=== PATIENT | female | born 1970 | race Caucasian/White ===

== ENCOUNTER 2021-01-12 11:01 | Outpatient (CLI) | payer BC, SELFPAY ==
[2021-01-12 17:35] LABS: Basophils Absolute Auto 0.1 K/mm3 (0.0-0.1); Basophils Percent Auto 0.9 % (0.2-1.2); Eosinophils Percent Auto 0.4 % (0-4.4); Hematocrit 42.4 % (37.0-47.0); Hemoglobin 13.6 g/dL (12.0-15.0); Immature Granulocyte Absolute 0.03 K/mm3 (0.00-0.031); Immature Granulocyte Percent A 0.4 % (0-0.5); Lymphocytes Absolute Auto 1.18 K/mm3 (0.9-3.2); Lymphocytes Percent Auto 14.5 % (18.3-44.2); Mean Corpuscular HGB Conc 32.1 g/dl (32-36); Mean Corpuscular Hemoglobin 29.6 pg (26-34); Mean Corpuscular Volume 92.4 fl (80-100); Mean Platelet Volume 10.5 fl (7.4-10.4); Monocytes Absolute Auto 0.5 K/mm3 (0.1-0.6); Monocytes Percent Auto 6.3 % (2.6-8.5); Neutrophils Absolute Auto 6.3 K/mm3 (1.3-6.7); Neutrophils Percent Auto 77.5 % (45.5-73.1); Platelet Count Result 311 k/mm3 (150-375); Red Blood Count 4.59 M/mm3 (4.2-5.4); Red Cell Distribution Width 12.6 % (11.5-14.5); White Blood Count 8.2 K/mm3 (4.5-10.0)
[2021-01-12 17:40] LABS: Alanine Aminotransferase 19 U/L (4-35); Albumin Level 4.3 g/dL (3.5-5.1); Alkaline Phosphatase 57 U/L (38-126); Anion Gap 7 mmol/L (8-16); Aspartate Amino Transferase 29 U/L (14-36); Bilirubin,Total 0.7 mg/dL (0.2-1.3); Blood Urea Nitrogen 17 mg/dL (7-17); Calcium 9.6 mg/dL (8.4-10.2); Carbon Dioxide 27 mmol/L (22-30); Chloride 106 mmol/L (98-107); Estimated Glomerular Filt Rate > 60; Glucose 117 mg/dL (65-105); Potassium 4.1 mmol/L (3.4-5.0); Sodium 140 mmol/L (137-145)
[2021-01-12 17:41] LABS: Add Urine Microscopic? YES; Appearance Urine Cloudy (Clear); Bacteria Urine Trace /hpf; Bilirubin Urine 1+ (Negative); Blood Urine Negative (Negative); Color Urine Amber (Yellow); Glucose Urine UA Negative (Negative); Ketones Urine Trace mg/dL (Negative); Leukocyte Esterase Ur Negative LEU/UL (Negative); Mucus Urine Heavy /lpf; Nitrate Urine Negative (Negative); Protein Urine 2+ mg/dL (Negative); Specific Grav Ur 1.035 (1.001-1.035); Squamous Epithelial Cell Urine Many /hpf (Few); WBC Urine 0-3 /hpf
[2021-01-12 18:48] LABS: Folic Acid > 20.0 ng/mL (2.76->20)
[2021-01-12 19:20] LABS: Vitamin D 25 Hydroxy 74.8 ng/mL
== END 2021-01-12 11:02 | disposition home or self-care (01) ==
PROVIDERS: PCP Family Medicine; Visit Provider Family Medicine
DX: J45.909 Unspecified asthma, uncomplicated (principal); D64.9 Anemia, unspecified; Z82.62 Family history of osteoporosis; Z80.0 Family history of malignant neoplasm of digestive organs; Z79.899 Other long term (current) drug therapy
CPT/HCPCS: 36415; 80053; 81001; 82306; 82607; 82746; 84443; 85025

== ENCOUNTER 2021-05-17 17:28 | Emergency (ER) | payer BC, SELFPAY ==
[2021-05-17 17:39] VITALS: BP 159/91; PULSE 55; RESP 20; TEMP 36.6; O2SAT 99
[2021-05-17 17:46] VITALS: BP 159/91; PULSE 55; RESP 20; TEMP 36.6; O2SAT 99
--- NOTE | 2021-05-17 17:49 | ED.WOUNDLAC ---
HPI - Wound/Laceration General Chief Complaint: Extremity Injury, Upper Stated Complaint: left hand index finger lac Time Seen by Provider: 05/17/21 17:38 Source: patient and RN notes reviewed History of Present Illness HPI narrative: Patient is a 42-year-old female presents the urgent care with complaints of a finger laceration to the left index finger. Patient stated prior to arrival she attempted to open a yogurt packing with a serrated knife. Patient is not up-to-date on her tetanus shot. States that she did wash it out with water and applied pressure. No other acute complaints or injuries. No acute distress noted. Patient aware of the plan of care. Some parts of this dictation were generated by voice recognition software and may contain typographical and/or grammatical inaccuracies. Related Data Home Medications Medication Instructions Recorded Confirmed albuterol sulfate 2 puff INHALATION QID PRN 05/17/21 05/17/21 aspirin [Aspirin Low-Strength] 81 mg PO DAILY 05/17/21 05/17/21 norethindrone-e.estradiol-iron 1 tablet PO DAILY 05/17/21 05/17/21 [Aurovela Fe 1-20 (28)] Allergies Allergy/AdvReac Type Severity Reaction Status Date / Time No Known Allergies Allergy Mild Verified 05/17/21 17:34 Review of Systems Review of Systems: CONSTITUTIONAL: Denies fever, chills, or sweats. EYES: Denies visual changes, redness, or discharge. ENT: Denies rhinorrhea, congestion, sore throat, or otalgia. CARDIOVASCULAR: Denies chest pain, palpitations, or edema. RESPIRATORY: Denies cough or dyspnea. GASTROINTESTINAL: Denies abdominal pain, nausea, vomiting, or diarrhea. GENITOURINARY: Denies dysuria or hematuria. SKIN: Reports of a laceration to the left index finger MUSCULOSKELETAL: Denies back pain, joint pain, or myalgia. NEUROLOGIC: Denies headache, numbness, or weakness. All other systems reviewed are negative, except as documented in HPI. [facility] Past Medical History Medical History (Updated 05/17/21 @ 18:11 by NOE Downs) Allergies Anemia Asthma Cervical cancer Surgical History Surgical History H/O left knee surgery Family History Family History Sibling Hypertension Father Family history of lymphoma, Onset Age: 70 Patient's father is Mother Lung cancer Colon cancer Other Family history of lung cancer Social History Social History Smoking status: Never smoker Alcohol intake: never Comments At the time of my signature, I reviewed and agree with the nursing past medical, surgical, social, and family history. There is no relevant family history pertinent to the patient complaint. Exam Narrative: GENERAL: This is a well-nourished, well-developed patient, in no apparent distress. HEAD: normocephalic, atraumatic. EYES: PERRL. Sclera clear/white. Vision is grossly intact. EARS: External ears normal NOSE: External nose normal with no obvious nasal discharge, nares without redness, no rhinorrhea. THROAT: Mucous membranes moist NECK: Neck supple CARDIOVASCULAR: Regular rate and rhythm without murmurs, gallops, or rubs. RESPIRATORY: Clear to auscultation. Breath sounds equal bilaterally. No wheezes, rales, or rhonchi. SKIN: 1.2 cm linear laceration between the DIP and PIP of the dorsal left index finger. NEURO: awake, alert, and oriented to person, place and time. There were no obvious focal neurologic abnormalities. EXTREMITIES: Range of motion to left hand/fingers within normal limits. Positive strong left radial pulse with capillary refill less than 2 seconds. Course Vital Signs Vital signs: Vital Signs Temperature 98 F 05/17/21 17:39 Pulse Rate 55 L 05/17/21 17:39 Respiratory Rate 20 05/17/21 17:39 Blood Pressure 159/91 H 05/17/21 17:39 Pulse Oximetry 99 05/17/21 17:39 Temper
[2021-05-17] MEDS: TETANUS,DIPHTHERIA,AC PERTUSSIS ADULT (0.5 ML) BOOSTRIX IM (17:59)
== END 2021-05-17 18:25 | disposition home or self-care (01) ==
PROVIDERS: Emergency Provider Nurse Practitioner Family; PCP Family Medicine
DX: S61.211A Laceration without foreign body of left index finger without damage to nail, initial encounter (principal); W26.0XXA Contact with knife, initial encounter; Z23 Encounter for immunization; D64.9 Anemia, unspecified; J45.909 Unspecified asthma, uncomplicated; Z85.41 Personal history of malignant neoplasm of cervix uteri
CPT/HCPCS: 12001; 90471; 90715; 99212; G0463

== ENCOUNTER 2023-12-24 02:56 | Day surgery (SDC) | payer OTHER, SELFPAY ==
[2023-12-11 12:33] VITALS: BMI 20.2
--- NOTE | 2023-12-11 12:40 | PC.NURSE ---
Report to the Outpatient Waiting Room, entrance under the green pavilion located off [facility], at time _1100_ on date _[id number]_. Planned Procedure Time: _1pm_. Time changes happen often and if your time is changed the preop area will call you the afternoon before. - You and your visitor will be asked to self-screen and do not enter if you have any COVID symptoms. - A mask is optional within the hospital at this time. Patients may have clear liquids (water, carbonated beverages, clear teas, apple juice) until 3 hours prior to surgery with a maximum of 20 ounces. - No food from midnight until time of surgery Take the following medications with a SIP of water the morning of surgery: __Symbicort_BC pill DO NOT STOP ANY OF YOUR OTHER PRESCRIPTION MEDICATIONS PRIOR TO SURGERY ?EXCEPT THE FOLLOWING Medications to discontinue per physician ___None Date to take last dose Please no make-up, nail tanzanian, hairspray, perfume, deodorant, or body powder the day of surgery. No jewelry (including any body piercings) or valuables the day of surgery, leave them at home. Please take a shower or bath the night before, or the morning of, surgery with an antibacterial soap. Wear comfortable, loose fitting clothing. - Jewelry must be removed prior to entering the operating room. Rings and piercings that are not removed may be cut off. - The hospital will not accept responsibility for valuables. - Please leave all valuables, including medications, at home the day of surgery. If you are going home after surgery, a licensed local [place] truck driver must drive you home. - NO public transportation without another adult if you receive anesthesia. - We recommend that an adult stay with you for 24 hours following discharge. - We also recommend that you do not drive, make important decision, drink alcoholic beverages, or take any drugs that were not prescribed by your health care provider for at least 24 hours after your discharge time. Follow any additional instructions given to you from your surgeon. If you or anyone in your household have experienced Covid symptoms in the past week, please notify your surgeon or the nurse liaison at the phone number below for possible testing. Telephone instructions given to _Neha__and asked if any additional questions and then verbalized understanding. Patient advised to call surgeon office or pre surgery nurse liaison [phone] if any additional questions.
[2023-12-24 11:30] VITALS: BP 141/99; PULSE 49; RESP 14; TEMP 36.6; O2SAT 100
[2023-12-24] MEDS: LACTATED RINGERS 1,000 ML 30 ML IV CONT (11:30)
[2023-12-24] MEDS: ACETAMINOPHEN 500 MG TABLET 1000 MG PO (11:30)
--- NOTE | 2023-12-24 12:01 | P.HP_ITS ---
H&P: HPI History of Present Illness Date/Time: 12/24/23 12:01 Chief Complaint: cervical polyp Narrative: Patient is a 53 year old female who presents for hysteroscopy and removal of polyp. Patient was seen in the office for well woman exam and found to have a cervical polyp on exam. She denies postcoital or other irregular bleeding. Pelvic US confirmed polyp and demonstrated a vascular stalk originating from n ear the internal os. r/b/a of removal and hysteroscopy discussed with patient who elects to move forward with hysteroscopy and polyp removal. Review of Systems Review of Systems: All systems reviewed & are unremarkable except as noted in HPI and below PMFSH Past Medical History Medical History Allergies Anemia Asthma Cervical cancer Surgical History Surgical History H/O left knee surgery Family History Family History Sibling Hypertension Father Family history of lymphoma, Onset Age: 70 Patient's father is Mother Lung cancer Colon cancer Other Family history of lung cancer Social History Social History Smoking status: Never smoker Alcohol intake: never Living arrangements: with family Spiritual care concerns: No Meds Home Medications and Allergies Home Medications Medication Instructions Recorded Confirmed Type budesonide-formoterol HFA 80 2 puff inhalation Q12H #10.2 grams 01/10/21 12/11/23 Rx mcg-4.5 mcg/actuation aerosol inhaler (Symbicort) albuterol sulfate 90 mcg/actuation 2 puff inhalation QID PRN 05/17/21 12/11/23 History aerosol inhaler Shortness Of Breath Or Wheezing aspirin 81 mg tablet,delayed 81 mg PO DAILY 05/17/21 12/11/23 History release norethindrone 1 mg-ethinyl 1 tablet PO DAILY 05/17/21 12/24/23 History estradiol 20 mcg (21)-iron 75 mg (7) tablet (Aurovela Fe 1-20 (28)) montelukast 10 mg tablet 10 mg PO DAILY #90 tabs 07/11/21 12/11/23 Rx (Singulair) Allergies Allergy/AdvReac Type Severity Reaction Status Date / Time No Known Allergies Allergy Mild Verified 12/24/23 11:45 Vital Signs Vital Signs - 24 hr 12/24/23 11:30 Temperature 97.9 F Pulse Rate 49 L Respiratory Rate 14 Blood Pressure 141/99 H Pulse Oximetry 100 Oxygen Delivery Room Air Exam Const: General: comfortable and no acute distress HENMT: Mouth: Yes moist mucous membranes Resp: Effort & Inspection: normal respiratory effort Cardio: Rate: regular rate Rhythm: regular rhythm Skin: General skin exam: normal color Extrem: General: normal to inspection Psych: Mental Status: mental status grossly normal Assessment and Plan Assessment and plan (1) Cervical polyp: Code(s): N84.1 - Polyp of cervix uteri Status: Acute Assessment and Plan: - r/b/a of removal discussed with patient - patient elects to proceed with hysteroscopy and polypectomy
--- NOTE | 2023-12-24 12:04 | WPDHPUPDATE1 ---
History and Physical Update Update Date/Time: 12/24/23 12:04 History and Physical has been reviewed, including an updated exam of the patient. There are NO changes in the patient's condition. Risks, benefits, and alternatives have been discussed and questions answered. Patient agrees to proceed with procedure.
--- NOTE | 2023-12-24 13:06 | P.PNAN_ITS ---
Anes - Initial Pre Proc Eval Procedure: Operation Date: 12/24/23 13:00 Proposed Procedures p Hysteroscopy with Biopsy of Endometrium and/or Polypectomy - Gael Samuels MD Date/Time: 12/24/23 13:06 Surgeon: Gael Samuels MD Pre Op Diagnosis: Polyp of Cervix Patient Data Age: 53 Gender: F Height: 1.68 m Weight: 58.05 kg Last Vital Signs Temp 97.9 F 12/24/23 11:30 Pulse 49 L 12/24/23 11:30 Resp 14 12/24/23 11:30 BP 141/99 H 12/24/23 11:30 Pulse Ox 100 12/24/23 11:30 O2 Del Method Room Air 12/24/23 11:30 Allergies Allergy/AdvReac Type Severity Reaction Status Date / Time No Known Allergies Allergy Mild Verified 12/24/23 11:45 Home Medications Medication Instructions Recorded Confirmed Type budesonide-formoterol HFA 80 2 puff inhalation Q12H #10.2 grams 01/10/21 12/11/23 Rx mcg-4.5 mcg/actuation aerosol inhaler (Symbicort) albuterol sulfate 90 mcg/actuation 2 puff inhalation QID PRN 05/17/21 12/11/23 History aerosol inhaler Shortness Of Breath Or Wheezing aspirin 81 mg tablet,delayed 81 mg PO DAILY 05/17/21 12/11/23 History release norethindrone 1 mg-ethinyl 1 tablet PO DAILY 05/17/21 12/24/23 History estradiol 20 mcg (21)-iron 75 mg (7) tablet (Aurovela Fe 1-20 (28)) montelukast 10 mg tablet 10 mg PO DAILY #90 tabs 07/11/21 12/11/23 Rx (Singulair) Patient hx anesthesia problems: none Family hx anesthesia problems: none Results Review: All pre-operative results and documents have been reviewed as part of the pre- operative evaluation. [facility] Past Medical History Medical History Allergies Anemia Asthma Cervical cancer Surgical History Surgical History H/O left knee surgery Family History Family History Sibling Hypertension Father Family history of lymphoma, Onset Age: 70 Patient's father is Mother Lung cancer Colon cancer Other Family history of lung cancer Social History Social History Smoking status: Never smoker Alcohol intake: never Living arrangements: with family Spiritual care concerns: No Anes - Eval Final PreProcedure Day of Procedure 12/24/23 13:06 Patient weight: normal Heart: regular rate and rhythm Lungs: clear to auscultation Airway: Mallampati scale class II Neurological: alert and oriented Last oral intake: >/= 8 hours ASA classification: I Emergent: no Anesthetic plan: proceed Anesthesia type and monitoring: general GIVS and standard monitoring Results Review: All pre-operative results and documents have been reviewed as part of the pre- operative evaluation. 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 Informed Consent: The patient's anesthetic plan and its attendant risks and benefits were discussed with the patient/family/POA. Questions were solicited and answers provided to the satisfaction of the patient/family/POA.
--- NOTE | 2023-12-24 13:07 | P.OP_ITS ---
Procedure Note - Detailed Date of Procedure 12/24/23 Pre-op Diagnosis Polyp of Cervix Post-op Diagnosis Same Procedure Performed hysteroscopy, removal of cervical polyp Surgeon Gael Samuels MD Anesthesia MAC Description of Procedure The patient was then taken to the operating room with IVFs running. She was plac ed in the dorsal supine position where she received MAC without any difficulty.?? The patient was placed in the dorsal lithotomy position using daniel stirrups. She was then prepped and draped in a normal sterile fashion. A time-out procedure was performed and all members of the OR team agreed on the patient and plan. A bivalved speculum was then inserted into the patient's vagina.? The anterior lip of the cervix was grasped with a single tooth tenaculum. The cervical os was dilated using bean dilators.? The uterus was sounded to 8 cm.? At this point, the hysteroscope was then inserted into the uterine cavity. Saline was used as the distension medium. The above findings were noted. Both tubal ostia were visualized and pictures were taken.? Using the morcellation device, the cervical polyp was circumferentially removed to its base. Hemostasis was noted. The specimen sent to pathology.? Fluid deficit was 130cc. The hysteroscope and morcellator was removed. The tenaculum was removed; the anterior lip of the cervix was hemostatic.? The speculum was then removed. The patient tolerated the procedure well.? Sponge, lap, needle, and instrument counts were correct X2.? The patient was taken out of the dorsal lithotomy position and awakened from anesthesia and taken to the recovery room in stable condition. Estimated Blood Loss 5 Pathology Yes Complications No immediate complications Condition Stable Disposition Same day
[2023-12-24] MEDS: LIDO 1%/EPINEPHRINE 1:100,000 20 ML VIAL 10 ML INFILTRATE (13:33)
[2023-12-24 13:45] VITALS: BP 106/62; PULSE 62; RESP 14; O2SAT 98
[2023-12-24 14:15] VITALS: BP 107/73; PULSE 56; RESP 16
[2023-12-24 14:45] VITALS: BP 150/95; PULSE 54; RESP 16
[2023-12-24 15:05] VITALS: BP 134/82; PULSE 55; RESP 14
== END 2023-12-24 15:15 | disposition home or self-care (01) ==
PROVIDERS: PCP Family Medicine; Visit Provider Obstetrics & Gynecology
PROC: 0U5B8ZZ Destruction of Endometrium, Via Natural or Artificial Opening Endoscopic (ICD-10-PCS; CPT 58563; principal; 2023-12-24 13:00)
DX: N84.1 Polyp of cervix uteri (principal); Z79.51 Long term (current) use of inhaled steroids; Z79.82 Long term (current) use of aspirin; J45.909 Unspecified asthma, uncomplicated; Z85.41 Personal history of malignant neoplasm of cervix uteri
CPT/HCPCS: 58558; 88305; A9270; J1100; J2250; J2704; J3010; J7120

== ENCOUNTER 2024-12-31 15:27 | Outpatient (CLI) | payer OTHER, SELFPAY ==
--- NOTE | ~2024-12-31 | MM_ITS ---
EXAMINATION: MM screening aviva BI w diony HISTORY: Screening TECHNIQUE: Craniocaudal and mediolateral oblique 3-D tomosynthesis images were obtained and synthetic 2-D images were generated. CAD analysis was submitted and interpreted. COMPARISON: No prior mammogram is available for comparison at this institution. BREAST PARENCHYMAL COMPOSITION: Dense: The breasts are extremely dense, which lowers the sensitivity of mammography. FINDINGS: There is no evidence of suspicious mass, calcification, or architectural distortion to sugg est malignancy in either breast. There has been no suspicious interval change. IMPRESSION: 1. No mammographic evidence of malignancy. 2. Recommend routine screening mammography in one year. BI-RADS Category 1: Negative Reviewed, dictated and finalized at location A.
--- OUTSIDE RECORDS SUMMARY | 2024-12-31 15:31 | XMS_ITS | Referral Summary ---
Author Organization [facility] [place] [address] Address [address] [place] [address] Care Team Providers Care Curing Press Maintainer Name Role Phone Silvana León MD Primary Care Provide r Allergies No known active allergies Medications aspirin 81 mg enteric coated tablet Take 1 tablet (81 mg total) by mouth daily Active multivitamin capsule Take 1 capsule by mouth daily Active calcium citrate-vitamin D2 250 mg-2.5 mcg (100 unit) per tablet Take 1 tablet by mouth 2 (two) times a day Active norethindrone-e .estradioL-iron (Blisovi Fe 08/03, ,) 1 mg-20 mcg (21)/75 mg (7) per tablet Blisovi Fe 08/03 () 1 mg-20 mcg (21)/75 mg (7) tablet Active montelukast (SINGULAIR) 10 mg tablet Take 1 tablet (10 mg total) by mouth daily 90 tablet 1 08/11/2024 Active albuterol HFA (Ventolin HFA) 90 mcg/actuation inhaler Inhale 2 puffs every 6 (six) hours as needed for wheezing 18 g 1 08/11/2024 Active scopolamine 1 mg over 3 days patch [address] 1 patch on the skin every third day as needed (nausea) 4 patch 03/08/2025 Active budesonide-form oteroL (SYMBICORT) 80-4.5 mcg/actuation inhaler Inhale 2 puffs 2 (two) times a day Rinse mouth with water after use. Do not swallow. 1 each 11 08/12/2024 Active Active Problems Problem Noted Date Diagnosed Date BMI 21.0-21.9, adult 08/11/2024 Lipoma of right shoulder 04/16/2024 Assessment & Plan (04/28/2024 7:46 AM CDT): Discussed further excision along with post operative wound care to which she is understanding and agreeable. Lipoma of torso 12/18/2022 Assessment & Plan (01/27/2023 3:04 PM CDT): Likely lipoma of the back, present for 2 years, slow growing. Discussed in office procedure of removal along with risks and benefits. Patient agrees, will plan for separate office procedure. Assessment & Plan (12/18/2022 11:42 AM CDT): Requested referral for removal Referral to general surgery given Encounter for wellness examination 12/05/2021 Assessment & Plan (08/11/2024 1:25 PM SENIOR NET ENGINEER): Order CBC, cmp, lipid, hgb A1c tsh Colonoscopy up to date, due 2027 Pap smear: goes to [facility] Mammo: follows with ob F/u in 1 year for annual Assessment & Plan (12/18/2022 11:28 AM CDT): Ordered CBC, cmp, lipid, hgb a1c Colonoscopy scheduled Pap smear: goes to women [facility] and up to date on screening Mammo: follows with ob Pcv20:declines Zoster given today F/u in 1 year for annual Assessment & Plan (12/05/2021 11:37 AM CDT): Ordered CBC, cmp, lipid, hgb a1c, HIV, hep c, TSH, and free t4 Colonoscopy referral for may Pap smear: goes to women [facility] and up to date on screening Mammo: follows with ob F/u in 1 year for annual Mild intermittent asthma without complication Assessment & Plan (08/10/2024 12:15 PM SENIOR NET ENGINEER): Stable Continue with albuterol prn, singulair daily, and symbicort F/u prn Assessment & Plan (12/17/2022 5:42 AM CDT): Stable Continue with albuterol prn, singulair daily, and symbicort F/u prn Assessment & Plan (12/05/2021 11:37 AM CDT): Stable Continue with albuterol prn, singulair daily, and symbicort F/u prn Immunizations Immunization Administration Dates Next Due DTP 04/08/1990 DTaP 5 Pertussis 05/06/1980, 6,1972,10/29,1972 Hep A, Unspecified 12/20/1992 Hep B, Unspecified 02/08/1994,07/26/1993, 993 Influenza, Quadrivalent, Spl it, Preservative Free, Intramuscular 05/07/2021,05/03/2020,04/30/2019 Influenza, Unspecified 08/11/2024(Deferr ed: Patient Refused),05/03/2023(Deferred: Patient Refused),04/14/2022,07/21/2020, 020 MMR 06/20/1993,01/11/1976 PPD TEST 11/11/2019 Tdap 05/17/2021 ZOSTER Recombinant 04/04/2023,12/18/2022 Social History Tobacco Use Types Packs/Day Years Used Date Smoking Tobacco: Never Smokeless Tobacco: Never Tobacco Cessation:Counseling Given: Not Answered Alcohol Use Standard Drinks/Week Comments No 0 (1 standard drink = 0.6 oz pur e alcohol) AUDIT-C Answer Date Recorded Q1: How often do you have a drink containing alc ohol? Never 04/28/2024 Average Number of Drinks Not on file 024 Frequency of Binge Drinking Not on file 04/14 PHQ-2 Answer Date Recorded PHQ-2 Total Score (If total score is 3 or more points, staff should administer the PHQ-9) 0 08/11/2024 Personal Safety Answer Date Recorded Have you ever been in or are you currently in a harmful physical or emotional relationship or is someone making you feel afraid or unsafe? Denies 04/28/2024 Comments No Sex and Gender Information Value Date Recorded Sex Assigned at Not on file Legal Sex Female 11:48 PM SENIOR NET ENGINEER Gender Identity Not on file Sexual Orientation Not on file Last Filed Vital Signs Vital Sign Reading Time Taken Comments Blood Pressure 116/62 08/11/2024 12:52 PM SENIOR NET ENGINEER Pulse 53 08/11/2024 12:52 PM SENIOR NET ENGINEER Temperature 36.9 C (98.5 F) 08/11/2024 12:52 PM SENIOR NET ENGINEER Respiratory Rate 16 08/11/2024 12:52 PM SENIOR NET ENGINEER Oxygen Saturation 99% 08/11/2024 12:52 PM SENIOR NET ENGINEER Inhaled Oxygen Concentration - - Weight 59.9 kg (132 lb) 08/11/2024 12:52 PM SENIOR NET ENGINEER Height 165.7 cm (5' 5.25) 08/11/2024 12:[address] Body Mass Index 21.8 08/11/2024 12:52 PM SENIOR NET ENGINEER Plan of Treatment Not on file Procedures Procedure Name Priority Date/Time Associated Diagnosis Comments HM PAP SMEAR WITH HPV Routine 10/29/2023 12:39 PM CDT COLONOSCOPY 02/05/2023 8:50 AM CDT HEPATITIS C ANTIBODY Routine 12/12/2021 9:49 AM CDT Encounter for wellness examination from Last 3 Months or Most Recently Relevant to Health Maintenance Results * HM PAP SMEAR WITH HPV (10/29/2023 12:39 PM CDT) Scribed Pap Smear w/HPV Normal us Historical Provider HEALTH MAINTENANCE Final Result * COLONOSCOPY (02/05/2023 8:50 AM CDT) Anatomical Region Laterality Modality Other Narrative Procedure Note Destiny Pichardo MD - 02/05/2023 8:50 AM CDT [facility] Patient Name: Neha Salinas Procedure Date: 02/05/2023 8:50 AM Date of : 1970 Admit Type: Outpatient Age: 52 Gender: Female Attending MD: Destiny Pichardo M.D. Room: [facility] ENDOSCOPY ROOM 1 Note Status: Finalized Patient Profile: This is a 52 year old female. Mother had coloncancer. No specific GI complaints Procedure: Colonoscopy Indications: Screening in patient at increased risk: Familyhistory of 1st-degree relative with colorectal cancer, Last colonoscopy 5 years ago Referring MD: Silvana León M.D. Providers: Destiny Pichardo M.D. Impression: - Small external and internal hemorrhoids - The entire examined colon is normal. - No specimens collected. Recommendation: - Repeat colonoscopy in 5 years for screeningpurposes. Medicines: Monitored Anesthesia Care Complications: No immediate complications. Estimated Blood Loss: Estimated blood loss: none. Procedure: Pre-Anesthesia Assessment: - Prior to the procedure, a History and Physicalwas performed, and patient medications and allergieswere reviewed. The patient's tolerance of previous anesthesia was also reviewed. The risks andbenefits of the procedure and the sedation options and risks were discussed with the patient. All questions were answered, and informed consent was obtained. Prior Anticoagulants: The patient has taken noanticoagulant or antiplatelet agents. ASA Grade Assessment: Per anesthesia note and evaluation. After reviewing the risks and benefits, the patient was deemed in satisfactory condition to undergo the procedure. The benefits, risks and alternatives of theprocedure and sedation were discussed and informed consentwas obtained. All questions were answered. Please referto the signed informed consent document in the medical record. The scope was passed under direct vision.The Pediatric Colonoscope PCF-H190L [id number] was introduced through the anus and advanced to the the cecum, identified by appendiceal orifice andileocecal valve. The bowel preparation used was Miralax and bisacodyl tablets via split dose instruction. The quality of the bowel preparation was excellent.Bowel prep was administered using a split dose. Findings: Small external hemorrhoids were found on perianal exam. The cecum appeared normal. The colon (entire examined portion) appeared normal. No polyps and no mass lesions noted The rectum appeared normal. Retroflexion showed small internal hemorrhoids. Electronically signed by Destiny Pichardo M.D. Destiny Pichardo M.D. 02/05/2023 9:36:49 AM Number of Addenda: 0 Note Initiated On: 02/05/2023 8:50 AM Procedure Code(s): --- Professional --- 62202, Colonoscopy, flexible; diagnostic, including collection of specimen(s) by brushing or washing, when performed (separateprocedure) Diagnosis Code(s): --- Professional --- Z80.0, Family history of malignant neoplasm of digestive organs K64.9, Unspecified hemorrhoids CPT copyright 2020 [employer]. All rights reserved. The codes documented in this report are preliminary and upon icd 9 coder reviewmay be revised to meet current compliance requirements. Recognized by the [employer] for promoting quality in endoscopy Destiny Pichardo MD ENDOSCOPY PROCEDURES Final Result * Hepatitis C antibody (12/12/2021 9:49 AM CDT) Hep C Ab Nonreactive Nonreactive FRANCOISEISRRAEL KHALIF (RICHARD) Comment: Interpretive Data Nonreactive: Antibodies to HCV not detected. Does NOT exclude the possibility of recent exposure to HCV. Equivocal: Equivocal for HCV antibodies. Supplemental molecular testing will be automatically performed to determine infection status in accordance with current CDC screening recommendations. Reactive: Positive for HCV antibodies. This may represent current or past HCV infection. Supplemental molecular testing will be automatically performed to determine current infection status in accordance with current CDC screening recommendations. Interpretive data was last revised on 2019. Testing performed by: [facility], [address] [place] [address]., [id number] Blood 12/12/2021 9:49 AM CDT 12/12/2021 3:58 PM CDT Narrative TRACY KHALIF (RICHARD) - 12/12/2021 5:26 PM CDT Patient will be getting labs done on or around 12/05 at [facility] Silvana León MD LAB MICROBIOL OGY - GENERAL ORDERABLES Edited Result - Final TRACY [facility] (RICHARD) [address] [facility] Department [place] [address] from Last 3 Months or Most Recently Relevant to Health Maintenance Insurance [employer] OPEN ACCESS [facility] Advance Directives For more information, please contact: [phone] * Full Code (Latest Code Status on File) Date Activated Date Inactivated Comments 02/05/2023 8:04 AM 02/05/2023 2:01 PM * Full Code Date Activated Date Inactivated Comments 02/05/2023 8:04 AM 02/05/2023 8:04 AM Care Teams Curing Press Maintainer Relationship Specialty Start Date End Date Silvana León MD [address] [address] PCP - General Family Medicine 12/05/21
--- OUTSIDE RECORDS SUMMARY | 2024-12-31 15:31 | XMS_ITS | Data Portability ---
Author Organization [facility] Address [address] [place] [address] [place] [address] Care Team Providers Care Education And Development Manager Name Role Phone JUDITH CASSIDY Primary Care Provider [phone] AXEL CABALLERO Primary Care Provider Assessment Encounter Date Assessment Date Assessment LastModified by Organization Details LastModified Time 10/16/2022 10/16/2022 Annual gynecological exam performed. Patient will come back in a year unless there are new symptoms. [email or web address] Not available 10/16/2022 12:55:15 10/29/2023 10/29/2023 Annual gynecological exam performed. Patient will come back in a year unless there are new symptoms. Not available 10/28/2023 14:20:16 Plan of Treatment Reminders Order Date Submit Date Provider Last Modified By Organization Details Last Modified Time Details Appointments [facility] 2024 08:30A Scooby BARBA MD Not available Not available Not available Lab None recorded. Referral None recorded. Procedures None recorded. Surgeries hysterosc opy, surgical, with biopsy of endometri um and/or polypecto my (SURG) 2023 024 [facility], [address], [place], [address], 12/24/2023 16:27:13 Imaging US, pelvis 2023 024 [email or web address] [place], [address], [place], [address], 11/05/2023 19:34:19 US, transvagi nal 2023 024 [email or web address] [place], [facility] [address], [place], [address], 11/05/2023 19:34:19 US, pelvis, complete 2023 024 [facility], [address], [address], [place], [address], 05/03/2024 05:01:36 MAMMO, screening , digital, bilateral 2023 024 [facility], [address], [place], [address], 07/26/2024 05:01:18 MAMMO, screening , digital, bilateral 2022 023 [email or web address] [facility], [address], [address], [place], [address], 07/24/2023 19:33:10 Medication Orders norethind zee (contrace ptive) 0.35 mg tablet [address] [facility] #[id number], [address], [place], [place], [id number], 10/29/2023 09:44:07 Blisovi Fe 1/20 (28) 1 mg-20 mcg (21)/75 mg (7) tablet 2022 023 [facility] #[id number], [address], [place], [place], [id number], 10/29/2023 09:43:57 Patient TargetsNo targets recorded. Patient InstructionsNo instructions recorded. Reason for Referral None Reported. Results Created Date Observation Date Name Description Value Unit Range Abnormal Flag Note LastModifiedBy Organization Detail LastModifiedTime 10/17/1910/16/2022 IMAGE GUIDE D PAP AND HPV REGAR DLESS image guided Pap, HPV regardless of Pap result SEE RESULT S BELOW CASE REPOR T: Cytol ogy Gynec ologi luis Repor t Case: [id number] Autho merry kim Provi jennyfer: Helene Marshall, ANTONIO Petty cted: 10/16 1705 Order ing Locat ion: [place] Patho log[facility] Recei harsha: 10/17 0619 First Scree n: Erin Argueta, CT Speci men: Gricel lundy Pap - Image d, Cervi x STATE MENT OF ADEQU ACY: Satis facto ry for evalu ation Trans forma tion zone compo nent prese nt FINAL DIAGN OSIS: Negat faina for Intra epith elial Leswallace fu or Fanta sherwood (NIL) . Elect cira steven evelio d by Erin Argueta, CT on 023 at 12:15 PM ----- ----- ----- ----- ----- ----- ----- ----- ----- ----- ----- ----- ----- ----- ----- ----- ----- ---- HPV RESUL TS: HPV mRNA E6/E7 : No HPV mRNA Detec darwin NOTE: This high risk HPV mRNA assay detec ts fourt een high- risk HPV types (16, 18, 31, 33, 35, 39, 45, 51, 52, 56, 58, 59, 66, 68) witho ut diffe renti ation . COMME NT: This speci men was revie wed by a Cytot echno logis t and/o r Patho logis t (as indic ated in this repor t) after evalu ation using the Thinp rep Imagi ng Syste m. CLINI LUIS INFOR MATIO N: Menst rual Statu s: LMP (if appli cable ): Clini luis Histo ry/Pr eviou s Pap: Type of Neopl brandan (if appli cable ): Signi fican t Clini luis Findi ngs: Other Histo ry: Hormo mai (if appli cable ): PAP EDUCA ARELI L NOTE: The Pap Test is a scree nikkie test with an inher ent false negat faina rate. Liqui d-bas ed sampl ing may decre ase, but will not elimi maia, false negat faina resul ts. A negat faina resul t does not precl ude the prese nce and/o r devel opmen t of disea se, since the prese nce of abnor mal cells in the sampl e depen ds on the locat ion of the lesio n and sampl ing techn ique. Shelbie nued regul ar scree nikkie is the best metho d of cance r preve ntion . If repor darwin cytol ogic findi ng do not corre late with physi luis and/o r histo rical findi ngs, furth er inves tigat ion is recom missy d, as clini rigo wolf nted. Not Available [facility] (Lab) [address], [place], [address], 10/18/2022 13:17:54 10/29/19 24 10/29/2023 IMAGE GUIDE D PAP AND HPV REGAR DLESS image guided Pap, HPV regardless of Pap result SEE RESULT S BELOW CASE REPOR T: Cytol ogy Gynec ologi luis Repor t Case: [id number] Autho rileilanin g Provi jennyfer: Maura Ware, ALBERTO Colle cted: 10/28 1028 Order ing Locat ion: [place] Patho logy Recei harsha: 10/29 0150 First Scree n: Eveline Rosenberg, CT Speci men: Scree nikkie Pap - Image d, Cervi x STATE MENT OF ADEQU ACY: Satis facto ry for evalu ation Trans forma tion zone compo nent prese nt FINAL DIAGN OSIS: Negat faina for Intra epith elial Lesio n or Fanta sherwood (NIL) . Elect cira steven evelio d by Eveline Rosenberg, CT on 2023 at 6:20 PM ----- ----- ----- ----- ----- ----- ----- ----- ----- ----- ----- ----- ----- ----- ----- ----- ----- ---- HPV RESUL TS: HPV mRNA E6/E7 : No HPV mRNA Detec darwin NOTE: This high risk HPV mRNA assay detec ts fourt een high- risk HPV types (16, 18, 31, 33, 35, 39, 45, 51, 52, 56, 58, 59, 66, 68) witho ut diffe renti ation . COMME NT: This speci men was revie wed by a Cytot echno logis t and/o r Patho logis t (as indic ated in this repor t) after evalu ation using the Thinp rep Imagi ng Syste m. CLINI LUIS INFOR MATIO N: Menst rual Statu s: LMP (if appli cable ): Clini luis Histo ry/Pr eviou s Pap: Type of Neopl brandan (if appli cable ): Signi fican t Clini luis Findi ngs: Other Histo ry: Hormo mai (if appli cable ): PAP EDUCA ARELI L NOTE: The Pap Test is a scree nikkie test with an inher ent false negat faina rate. Liqui d-bas ed sampl ing may decre ase, but will not elimi maia, false negat faina resul ts. A negat faina resul t does not precl ude the prese nce and/o r devel opmen t of disea se, since the prese nce of abnor mal cells in the sampl e depen ds on the locat ion of the lesio n and sampl ing techn ique. Shelbie nued regul ar scree nikkie is the best metho d of cance r preve ntion . If repor darwin cytol ogic findi ng do not corre late with physi luis and/o r histo rical findi ngs, furth er inves tigat ion is recom missy d, as clini rigo wolf nted. Not Available [facility] (Lab) [address], [place], [address], 10/31/2023 19:24:24 11/05/19 24 11/05/2023 US, pelvi s No observ ation record ed. [email or web address] [place] [address], [place], [address], 11/05/2023 18:12:06 11/05/19 24 11/05/2023 US, trans vagin al No observ ation record ed. [email or web address] [place] [address], [place], [address], 11/05/2023 18:11:54 11/05/19 24 11/05/2023 US, pelvi s No observ ation record ed. [facility] [address], [place], [address], 11/06/2023 00:21:45 Result Notes None recorded. Problems Name Problem SNOMED Code Status Onset Date Resolution Date Notes Provider Name and Address Organization Details Recorded Time Speciali zed medical examinat ion Completed 201209/01/2021 Gynecolog ical Examinati on;Record ed Elsewhere : No Locati on: [facility] So urce: EHR Chron ic: N Practic e ID: 0001 Bill able Time: 08:30:00 AM Evangelina brown [facility] 2 11:51:41 Screenin g for malignan t neoplasm of rectum Completed 201609/01/2021 Encounter for screening for malignant neoplasm of rectum;Re corded Elsewhere : No Locati on: [facility] So urce: EHR Chron ic: N Practic e ID: 0001 Bill able Time: 08:30:00 AM Evangelina brown [facility] 2 11:51:[address] Concept Completed 201609/01/2021 Encntr for general adult medical exam w/o abnormal findings; Recorded Elsewhere : No Locati on: [facility] So urce: EHR Chron ic: N Practic e ID: 0001 Bill able Time: 08:30:00 AM Evangelina brown [facility] 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 2 11:51:40 Screenin g for malignan t neoplasm of cervix Completed 201109/01/2021 Screening for malignant neoplasms of the cervix;Re corded Elsewhere : No Locati on: [facility] So urce: EHR Chron ic: N Practic e ID: 0001 Bill able Time: 09:30:00 AM Evangelina brown [facility] 2 11:51:35 Adult health examinat ion Completed 201309/01/2021 ROUTINE MEDICAL EXAM;Galo rded Elsewhere : No Locati on: [facility] So urce: EHR Chron ic: N Practic e ID: 0001 Bill able Time: 08:30:00 AM Evangelina brown [facility] 2 11:51:36 Polyp of cervix [id number] Completed 201709/01/2021 Polyp of cervix uteri;Rec orded Elsewhere : No Locati on: [facility] So urce: EHR Chron ic: N Practic e ID: 0001 Bill able Time: 08:45:00 AM Evangelina brown [facility] 2 11:51:45 Mucous polyp of cervix 11583612 Completed 201009/01/2021 Mucous polyp of cervix;Re corded Elsewhere : No Locati on: [facility] So urce: EHR Chron ic: N Practic e ID: 0001 Bill able Time: 03:00:00 PM Evangelinaeli brown [facility] 11:51:43 Problem Notes None recorded. Procedures Surgical History Date Name Laterality Status Provider Name and Address Organization Details Recorded Time 12/24/19 24 HYSTEROSCOPY, SURGICAL, WITH BIOPSY OF ENDOMETRIUM AND/OR POLYPECTOMY (SURG) completed Gonzales [facility]kins [facility] 12/25/2023 09:24:53 04/23/20 23 Date of Last Colonoscopy completed Loly Ash [facility] 11/19/2023 09:56:27 10/17/19 23 Date of Last Pap Smear completed [facility] 10/16/2022 12:57:41 05/06/20 18 cervical biopsy completed [facility] 10/16/2022 13:50:20 10/14/19 14 open reduction of fracture of pelvic bone with internal fixation completed [facility] 10/16/2022 13:50:57 12/14/19 12 arthroscopy completed [facility] 10/16/2022 13:50:33 11/22/19 10 Orthopedic Surgery completed [facility] 10/28/2023 14:20:47 02/01/20 08 Colposcopy completed [facility] 10/28/2023 14:20:46 04/26/20 06 cone biopsy of cervix completed [facility] 10/16/2022 13:49:18 07/15/19 06 Colposcopy completed [facility] 10/16/2022 13:48:41 07/15/19 06 Colposcopy completed [facility] 10/16/2022 13:07:18 Imaging Results None recorded. Procedure Notes None recorded. Medical Equipment None Reported. Allergies No known drug allergies Medications Name Sig Start Date Stop Date Status Note LastModified by Organization Details LastModified Time amoxicill in 500 mg capsule TK ONE C PO TID TAT 09/01 completed Not Available Not Available Not Available albuterol (bulk) powder 09/01 completed Prescrib ed Elsewher e: Yes Loca tion: Tashajoselyn marcelle [facility] odify By: zion ch DateTime : 04/04/20 11 03:00:00 PM Not Available Not Available Not Available hydrocodo ne 5 mg-acetam inophen 325 mg tablet TK 1 OR 2 TS PO Q 6 H PRN P 07/11 completed Not Available Not Available Not Available Charles Low Dose Aspirin 81 mg tablet,de layed release take 1 tablet (81MG) by oral route every day active Prescrib ed Elsewher e: Yes Loca tion: Landon marcelle [facility] odify By: marilou gonzalez DateTime : 03/11/20 12 09:30:00 AM Not Available Not Available Not Available Vitamins B Complex capsule 03/19 completed Prescrib ed Elsewher e: Yes Loca tion: Tashajankifrancis ibanez [facility] odify By: patrick gonzalez DateTime : 03/11/20 12 09:30:00 AM Not Available Not Available Not Available Glucosami ne 500 mg tablet 07/11 completed Prescrib ed Elsewher e: Yes Loca tion: Landon marcelle [facility] odify By: marilou gonzalez DateTime : 03/11/20 12 09:30:00 AM Not Available Not Available Not Available vitamin B complex tablet active Prescrib ed Elsewher e: Yes Loca tion: Tashajoselyn [facility] odify By: soheila ch DateTime : 04/05/20 16 08:30:00 AM Not Available Not Available Not Available monteluka st 10 mg tablet TAKE 1 TABLET BY MOUTH DAILY active Not Available Not Available No t Available methylpre dnisolone 4 mg tablets in a dose pack FOLLOW PACKAGE DIRECTIO NS 10/16 completed Not Available Not Available Not Available albuterol sulfate HFA 90 mcg/actua tion aerosol inhaler INHALE 2 PUFFS BY MOUTH FOUR TIMES DAILY NEEDED FOR WHEEZING active Not Available Not Available No t Available norethind zee (contrace ptive) 0.35 mg tablet TAKE 1 TABLET BY MOUTH EVERY DAY active Not Available Not Available No t Available magnesium 200 mg tablet 10/16 completed Prescrib ed Elsewher e: Yes Loca tion: Landon ibanez [facility] odify By: soheila ch DateTime : 04/05/20 16 08:30:00 AM Not Available Not Available Not Available Calcium 500 + D 500 mg-5 mcg (200 unit) tablet active Prescrib ed Elsewher e: Yes Loca tion: Landon ibanez [facility] odify By: zion ch DateTime : 04/04/20 11 03:00:00 PM Not Available Not Available Not Available iron 325 mg (65 mg iron) tablet 10/16 completed Prescrib ed Elsewher e: Yes Loca tion: Landon ibanez [facility] odify By: soheila ch DateTime : 04/05/20 16 08:30:00 AM Not Available Not Available Not Available Singulair 4 mg oral granules in packet 03/28 completed Prescrib ed Elsewher e: Yes Loca tion: Landon ibanez [facility] odify By: susan ch DateTime : 04/21/20 18 10:30:00 AM Not Available Not Available Not Available Loestrin 24 Fe 1 mg-20 mcg (24)/75 mg (4) tablet take 1 tablet by oral route every day 03/11 completed Prescrib ed Elsewher e: No Locat ion: Landon ibanez [facility] odify By: katelyn tz Taniya ntdonna DateTime : 12/20/19 12 09:54:52 AM Not Available Not Available Not Available Symbicort 160 mcg-4.5 mcg/actua tion HFA aerosol inhaler inhale 2 puff by inhalati on route 2 times every day in the morning and evening 03/19 completed Prescrib ed Elsewher e: Yes Loca tion: Landon ibanez [facility] odify By: patrick gonzalez DateTime : 04/01/20 11 08:17:01 PM Not Available Not Available Not Available Symbicort 80 mcg-4.5 mcg/actua tion HFA aerosol inhaler INHALE 2 PUFFS BY MOUTH EVERY 12 HOURS active Not Available Not Available No t Available Zyrtec 10 mg capsule 03/19 completed Prescrib ed Elsewher e: Yes Loca tion: Landon [facility] odify By: patrick gonzalez DateTime : 04/01/20 08:17:01 PM Not Available Not Available Not Available Blisovi Fe 08/03 (28) 1 mg-20 mcg (21)/75 mg (7) tablet TAKE 1 TABLET BY MOUTH DAILY, SKIPPING PLACEBO TABLETS FOR CONTINUO US CYCLING 2024 active Not Available Not Available Not Avai lable Afluria Qd 2019- (36 mos up)(PF)60 mcg (15 mcg x4)/0.5 mL IM syringe ADM 0.5ML IM UTD 07/11 completed Not Available Not Available Not Available Vitals Date Recorded Body height Body mass index (BMI) Body weight Systolic blood pressure Diastolic blood pressure Provider Name and Address Organization Details Last Updated DateTime 10/16/2022 160.02 cm 22.3 kg/m2 56249.64 g 130 mm[Hg] 82 mm[Hg] Oralia Bell [facility] 3 12:55:56 Date Recorded Body height Body mass index (BMI) Body weight Systolic blood pressure Diastolic blood pressure Systolic blood pressure Diastolic blood pressure Provider Name and Address Organization Details Last Updated DateTime 4 160.02 cm 23 kg/m2 88332.0 1 g 159 mm[Hg] 95 mm[Hg] 146 mm[Hg] 88 mm[Hg] Kat Ramires [facility] 4 09:27:33 Date Recorded Body height Body mass index (BMI) Body weight Systolic blood pressure Diastolic blood pressure Provider Name and Address Organization Details Last Updated DateTime 11/19/2023 167.64 cm 20.6 kg/m2 13293.67 g 134 mm[Hg] 89 mm[Hg] Loly Ash [facility] 4 09:55:49 Date Recorded Body height Body mass index (BMI) Body weight Systolic blood pressure Diastolic blood pressure Provider Name and Address Organization Details Last Updated DateTime 01/14/2024 167.64 cm 20.5 kg/m2 48654.23 g 118 mm[Hg] 74 mm[Hg] Loly Moyanguyễn [facility] 11:07:03 Social History Question Answer Notes LastModified by Organizat ion Details LastModified Time Tobacco Smoking Status Never Smoker Oralia Arabella brown, [facility] 10/16/2022 12:56:32 Do You Have An Advance Directive? No [email or web address] Information n ot available 10/16/2022 Are You Blind Or Do You Have Difficulty Seeing? No [email or web address] Information n ot available 10/16/2022 What Is Your Level Of Caffeine Consumption? Occasional [email or web address] Information not available 10/16/2022 How Much Tobacco Do You Chew? None Information not available 10/16/2022 In The 14 Days Before Symptom Onset, Have You Had Close Contact With A Laboratory-confirm ed COVID-19 While That Case Was Ill? No [email or web address] Information n ot available 10/16/2022 In The 14 Days Before Symptom Onset, Have You Had Close Contact With A Person Who Is Under Investigation For COVID-19 While That Person Was Ill? No Information not available 10/16/2022 Have You Been To An Area Known To Be High Risk For COVID-19? No [email or web address] Information not available 10/16/2022 Are You Deaf Or Do You Have Serious Difficulty Hearing? No [email or web address] Information not available 10/16/2022 What Type Of Diet Are You Following? REGULAR [email or web address] Information n ot available 10/16/2022 What Is The Highest Grade Or Level Of School You Have Completed Or The Highest Degree You Have Received? [id number] [email or web address] Information not available 10/16/2022 Are There Any Guns Present In Your Home? No [email or web address] Information not available 10/16/2022 Do You Use Protection During Sex? No [email or web address] Information not available 10/16/2022 Do You Use Your Seat Belt Or Car Seat Routinely? Yes Information not available 10/16/2022 Do You Have Smoke And Carbon Monoxide Detectors In Your Home? Yes Information not available 10/16/2022 How Much Tobacco Do You Smoke? No [email or web address] Information not available 10/16/2022 Do You Use Sunscreen Routinely? Yes Information not available 10/16/2022 How Many Years Have You Smoked Tobacco? 0 Information not available 10/28/2023 Have You Used IV Drugs? No [email or web address] Information not available 10/16/2022 Sex: Unknown Functional Status Question Answer Note LastModified by Organizat ion Details LastModified Time Do you use any illicit or recreational drugs? No [email or web address] Information not available 10/16/2022 What is your level of alcohol consumption? Occasional Information not available 11/19/2023 Are you able to walk? YESWOREST [email or web address] Information not available 10/16/2022 What is your occupation? [employer]ER [employer] Information not available 11/19/2023 What is your exercise level? Moderate [email or web address] Information not available 10/16/2022 Mental Status Question Answer Note LastModified by Organization D etails LastModified Time Do you feel stressed (tense, restless, nervous, or anxious, or unable to sleep at night)? [id number] Information not available 11/19/2023 Family History Relationship Description Onset Age of this Age Resolved Age Notes LastModified by Organization Details LastModified Time Mother Malignant neoplasm of lung [email or web address] Not available 2023 14:20:26 Mother Malignant tumor of colon [email or web address] Not available 2023 14:20:26 Mother Malignant neoplasm of lung [email or web address] Not available 2023 14:49:46 Mother Malignant tumor of colon [email or web address] Not available 2023 14:49:46 Father Malignant neoplasm of urinary bladder [email or web address] Not available 2023 09:49:16 Paternal Grandmother Malignant neoplasm of ovary [email or web address] Not available 2023 14:20:26 Paternal Grandmother Malignant neoplasm of ovary Not available 2023 14:49:46 Medical History Condition Response Allergies (Food, seasonal, environmental ) Y Other N Breast Cancer N Drug/Latex Allergies/Reactions N Blood Transfusion N Dermatologic Disorders N Lung Disease N Defects or Inherited Disease N Breast Problem N Gestational Diabetes N Hematologic disorders N Anesthesia Complications N History of STI N Deep Vein Thrombosis N Polycystic ovary syndrome N Anxiety Disorder N Autoimmune disease N Arthritis N Infertility N Polyps N Acid Reflux (GERD) N History of abnormal pap Y Cancer Y Stroke N Varicosities N Neurologic/Epilepsy N Endometriosis N High Cholesterol N Headaches N Fibromyalgia N Kidney Disease N Heart Problems Y Kidney or Bladder Problems N Thyroid Problems N GI Problems N Eating Disorder N Anemia Y Art (IVF or FET) N Psychiatric Illness N Ovarian Cancer N Diabetes N Pulmonary (TB, Asthma) N Hepatitis/Liver Disease N No Past Medical History N Eczema N Urinary Tract Infection N Abuse/Domestic Violence N Asthma Y Trauma/Violence N Depression/ depression N Heart Disease N Pre-Eclampsia N Hypertension N Osteoporosis N Thrombophilias N Gynecological History Statement/Question Response Abnormal Pap Y Date of Last Mammogram On BCP's at Conception? N N STIs/STDs N Was last menstrual period normal N HPV Vaccine N Colposcopy 07/15/2005 Current Control Method BCPs Age at First Child 36 Are cycles usually normal N Date of Last Colonoscopy 04/23/2023 Sexually Active? Y Menses Monthly N Date of DEXA bone scan Age of first menstrual cycle 13 Date of Last Pap Smear 10/16/2022 Sexual Problems? N LMP Unknown Desired Control Method BCPs N Obstetrics History GPAL:G 1 P 1 0 0 1 Type Value Full Term 1 Living 1 Total 1 Past Encounters Encounter ID Performer Location Encounter Start Date Encounter Closed Date Diagnosis/Indication Diagnosis SNOMED-CT Code Diagnosis ICD10 Code Diagnosis Note [id number] Diana De Leon [facility] [address] [address] 07/11/2020 11:25:37 07/11/2020 12:13:06 Gynecologic examination [id number] Z01.419 Suggested Calcium with Vitamin D 1200-1500m g daily. Patient advised to get an annual flu shot in the fall and she could obtain at [facility] or [facility] clinic. Also to obtain TDap vaccinatio n if you have not had one in the last 10 years. Recommend yearly mammograms . Encouraged monthly self breast exams. Encourage safe sexual practices, to use condoms and limit partners if not already in a monogamous relationsh ip. Engage in daily exercise of low impact aerobic exercise 45-60 minutes 4-5 times weekly. Avoid tobacco and illicit drugs as well as using moderation with alcohol intake less than 1-2 8 oz beverages daily. This lifestyle behavior pattern will lead to less health conditions and longer life span. If BMI greater than 25 weight watchers or dietary consult advised. All questions have been answered. Patient appears to understand informatio n, but if you have any questions please call or respond to this email. Hx cervical cancer with conization /Leep 2006. Normal pap/hpv since this time. Monogamous x 24yrs Adopted 2 kids/foste ring 7yo. Has one biological . No issues or concerns this year. Screening mammography 24 703640 Z12.31 Contracept ion care management 602300473 Z30.9 Happy on BC. RF sent. [id number] Helene Gonzalez CNM [facility] [place] [address] [address] 09/04/2021 10:27:46 09/04/2021 10:58:53 Gynecologic examination [id number] Z01.419 Z11.51 Suggested Calcium with Vitamin D 1200-1500m g daily. Patient advised to get an annual flu shot in the fall and she could obtain at [facility] or [facility] care clinic. Also to obtain TDap vaccinatio n if you have not had one in the last 10 years. Recommend yearly mammograms . Encouraged monthly self breast exams. Encourage safe sexual practices, to use condoms and limit partners if not already in a monogamous relationsh ip. Engage in daily exercise of low impact aerobic exercise 45-60 minutes 4-5 times weekly. Avoid tobacco and illicit drugs as well as using moderation with alcohol intake less than 1-2 8 oz beverages daily. This lifestyle behavior pattern will lead to less health conditions and longer life span. If BMI greater than 25 weight watchers or dietary consult advised. All questions have been answered. Patient appears to understand informatio n, but if you have any questions please call or respond to this email. [id number] Helene Gonzalez CNM [place] [address] [address] 10/16/2022 12:36:51 10/17/2022 10:12:01 Gynecologic examination [id number] Z01.419 Z11.51 Suggested Calcium with Vitamin D 1200-1500m g daily. Patient advised to get an annual flu shot in the fall and she could obtain at [facility] or [facility] care clinic. Also to obtain TDap vaccinatio n if you have not had one in the last 10 years. Recommend yearly mammograms . Encouraged monthly self breast exams. Encourage safe sexual practices, to use condoms and limit partners if not already in a monogamous relationsh ip. Engage in daily exercise of low impact aerobic exercise 45-60 minutes 4-5 times weekly. Avoid tobacco and illicit drugs as well as using moderation with alcohol intake less than 1-2 8 oz beverages daily. This lifestyle behavior pattern will lead to less health conditions and longer life span. If BMI greater than 25 weight watchers or dietary consult advised. All questions have been answered. Patient appears to understand informatio n, but if you have any questions please call or respond to this email. [facility] What's in My Handbag [facility] [id number] Z30.9 [id number] CLAYTON Meraz [place] [address] [address] 10/29/2023 09:08:06 10/29/2023 10:39:56 Gynecologic examination [id number] Z01.419 WWEpap updatedde lined STI screenmamm ogram order givencolon oscopy UTDroutine labs UTD/PCPenc ouraged PCP f/u for BP check Take Calcium with Vitamin D daily.Do monthly self breast exams.It is advised to get annual flu shot in the fall and she could obtain at [facility] or [facility] care clinic. If you haven't received the Tdap vaccine in the last 10 years you should obtain one as well.Have mammogram yearly, stay UTD on colon CA screening. Engage in regular exercise. Avoid tobacco and illicit drugs. This lifestyle behavior pattern will lead to less health conditions and longer life span. If BMI greater than 25 dietary consult advised.Qu estions have been answered. Patient appears to understand instructio ns, but if you have any further questions call or respond to this email [facility] What's in My Handbag [facility] [phone] Z30.9 Reviewed option of checking labs/menop ausal status and/or discontinu ing BC vs continuing with BC. Pt opts to continue at this time.BP elevated today x 2. Given this and medical hx recommende d progestero ne only method Discussed all control options in great detail. Pt would like to start POP. She is aware of the risks and benefits. She has contraindi cations to use of OCP or other estrogen containing hormonal therapy. She is aware it is not effective for control the first month. She is also aware of the importance of taking at the same time every day. Encouraged use of condoms as the pill does not protect against STD's. Pt verbalized understand ing.rx sentquesti ons answered Screening for malignant neoplasm of cervix [id number] Z12.4 Lesion of cervix [id number] N88.9 cervical lesion/jr yp noted on examrecomm ended pelvic u/s and then removalque stions answeredpt scheduled to RTC [id number] Vern Andujar MD [place] [address] [address] 11/05/2023 14:49:38 11/05/2023 16:02:22 Polyp of cervix [id number] N84.1 [id number] JOVAN BARBA MD [place] [address] [address] 11/19/2023 09:49:03 11/20/2023 07:20:59 Polyp of cervix [id number] N84.1 - incidental ly found on exam- hx of LEEP and CKC, normal pap smears since- hx of polyp ~5 years ago removed without issue- given large vascular stalk appearing to originate high in the cervical canal, recommend hysterosco py prior to removal of polyp to ensure vascular control- r/b/a of procedure discussed with patient who is agreeable to proceeding with procedure [id number] JOVAN BARBA MD [place] [address] [address] 01/14/2024 10:59:46 01/14/2024 11:35:11 Polyp of cervix [id number] N84.1 - incidental ly found on exam- hx of LEEP and CKC, normal pap smears since- hx of polyp ~5 years ago removed without issue- s/p hystereosc opy and polypectom y 12/29- meeting postop milestones - pathology: benign endocervic al polyp- rtc 1 year for WWE Health Concerns Section Related Observation LastModified by Organization Detai ls LastModified Time None Recorded Concern Status LastModified by Organization Details LastModified Time None Recorded Advance Directives Directive N: Payers Insurance Date Sequence Insurance Name Policy Number Policy Clayton Covered Member ID Clayton Member ID Guarantor Name 03/10/2024 1 [employer] (PPO) Neha Salinas [id number] Neha Zhang Quick 11/18/2023 1 [place] [id number] Neha Zhang Quick [id number] Neha Zhang Quick 03/10/2024 1 [employer] [facility] [employer] [id number] Neha Salinas [id number] Neha Salinas Notes Date Note Type Note Provider Name and Address Organization Details Recorded Time 3 text/html Annual GYNReported bypatient.Menstrual cycle:Suppressed with ocp. Urinary symptoms:No hematuria; No incontinence Vulva:No genital lesion Vagina:Normal vaginal discharge Breast:No breast pain; No breast lump; No nipple discharge Sexual complaints:No sexual complaints; No pain during intercourse; Normal libido Menopausal Symptoms:No menopausal symptoms; Normal vaginal lubrication Psychological symptoms:No depression; No anxiety; No PMDD Helene brown [facility] 10/16/2022 18:05:05 4 text/html Annual GYNReported bypatient.Menstrual cycle:Normal menses Urinary symptoms:No hematuria; No incontinence Vulva:No genital lesion Vagina:Normal vaginal discharge Breast:No breast pain; No breast lump; No nipple discharge Current Contraception:Satisfie d with current contraception; Oral contraceptives Sexual complaints:No sexual complaints; No pain during intercourse; Normal libido Menopausal Symptoms:No menopausal symptoms; Normal vaginal lubrication Psychological symptoms:No depression; No anxiety; No PMDD Preventive measures:Encourage self breast examination; Encourage regular exercise; Encourage no tobacco use; Encourage regular mammograms starting age 40Notes:WWEh/o cervical CA with conization 2007normal pap/hpv since this timelast pap 10/2022 : nilm, HPV (-)OCP for BC, takes continuously, no bleedingmammogram last 2 years agocolonoscopy last year in Oct : repeat in 5 yrsmedical hx: PFO, ASA, asthma CLAYTON Meraz [address], [place], [address], [facility] 10/29/2023 10:36:08 4 text/html Patient presents for ultrasound follow up. Cervical polyp seen on pelvic exam during WWE. Pelvic US demonstrated normal endometrium, however large vascular structure in the cervical canal, polyp vs prolapsed fibroid. Patient denies pain, bleeding or abnormal discharge. Had a history of a polyp 5 years ago, had it removed in the office without issue. Does report a history of possible precancerous cells with normal pap smears since LEEP/cervical cone. Reports excess bleeding episodes after skin lesion removal and dental procedure. No known hx of bleeding disorder. JOVAN BARBA MD [address], [place], [address], [facility] 11/19/2023 22:30:50 4 text/html S/p hysteroscopy and cervical polypectomy 12/29. Patient doing well, no complaints. Bleeding for a few days, now resolved. Denies nausea or vomiting. No shortness of breath or chest pain. Ambulating. JOVAN BARBA MD [address], [place], [address], [facility] 01/14/2024 11:21:01 OBGyn Episode Ob Episode Information Episode Created Date Number of Fetuses Patient Bloodtype Patient rh Status Prepregnancy Weight lbs Domestic Partner Domestic Partner Phone Father Name Marine Chronometer Assembler Status 09/01/19 22 1 DELETED Ronni Calculation Initial Ronni Date Initial Exam Date Initial Exam Provider Initial Ultrasound Date Last Menstrual Period Date Ultra Sound Weeks Gestation 0 Eighteen To Twenty Week Ronni Update Ultra Sound Date Fundal Height At Umbil Quickening Date Ultra Sound Latest Weeks Gestation Final Ronni Confirmed By Final Ronni Confirmed Date Final Ronni Date Ultra Sound Latest Days Gestation 0 0 Menstrual History Last Menstrual Date Menses Monthly On Bcp Conception Prior Menses Frequency Hcg Plus Date Menarche Onset Age Delivery Information Delivery Date Delivery Type Labor Anesthesia Weeks Gestation Incision Type Labor Labor Length Hrs Delivered By Post Complications Tubal Sterilization Discharge Date Comments 6 Discharge Information Feeding Method Contraceptive Method Maternal HG B and HCT Levels Ob Episode Information Episode Created Date Number of Fetuses Patient Bloodtype Patient rh Status Prepregnancy Weight lbs Domestic Partner Domestic Partner Phone Father Name Marine Chronometer Assembler Status 09/01/19 22 1 CLOSED Fetus Data First Name Last Name Admitted to NICU Weight (g) Sex Living Outcome Pediatric Complications Fetus ID Race Codes Race Delivery Type 2919.77 1704 F Full Term [id number] Vaginal Delivery Ronni Calculation Initial Ronni Date Initial Exam Date Initial Exam Provider Initial Ultrasound Date Last Menstrual Period Date Ultra Sound Weeks Gestation 0 Eighteen To Twenty Week Ronni Update Ultra Sound Date Fundal Height At Umbil Quickening Date Ultra Sound Latest Weeks Gestation Final Ronni Confirmed By Final Ronni Confirmed Date Final Ronni Date Ultra Sound Latest Days Gestation 0 0 Menstrual History Last Menstrual Date Menses Monthly On Bcp Conception Prior Menses Frequency Hcg Plus Date Menarche Onset Age Delivery Information Delivery Date Delivery Type Labor Anesthesia Weeks Gestation Incision Type Labor Labor Length Hrs Delivered By Post Complications Tubal Sterilization Discharge Date Comments 7 38 Discharge Information Feeding Method Contraceptive Method Maternal HG B and HCT Levels
--- OUTSIDE RECORDS SUMMARY | 2024-12-31 15:31 | XMS_ITS | Clinical Summary ---
Author Organization [facility] Address [address] [place] [address] Phone Care Team Providers Care Demonstrator Sales Name Role Phone Kristy Florence MD Primary Care Provider [phone] Allergies No known active allergies Medications Cyanocobalamin (B-12 PO) Take by mouth. Active FERROUS SULFATE PO Take by mouth. Active Calcium Carbonate-Vitam in D (CALCIUM + D PO) Take by mouth. Active multiple vitamin with minerals (CENTRUM) Tablet Take 1 Tab by mouth daily. Active JUNEL FE 08/03 1-20 MG-MCG Tablet TK 1 T PO QD 0 03/10/2018 Active BABY ASPIRIN PO Take 81 mg by mouth. Active montelukast (SINGULAIR) 10 MG Tablet TAKE 1 TABLET BY MOUTH EVERY EVENING 90 Tab 02/10/2019 Active ALBUTEROL 108 (90 Base) MCG/ACT Aerosol Solution INHALE 2 PUFFS BY MOUTH EVERY 4 HOURS NEEDED FOR WHEEZING 42.5 g 6 07/22/2019 Active Active Problems Problem Noted Date Diagnosed Date Iron deficiency 10/03/2015 Anemia, unspecified 10/03/2015 Fatigue 10/03/2015 Immunizations Immunization Administration Dates Next Due Influenza Vaccine, Quadrivalent, PF 04/30/2019 Family History Medical History Relation Name Comments Cancer Father bladder + Lymph adi Lung Cancer Maternal Aunt Lung Cancer Maternal Grandfather Ovarian Cancer Maternal Grandmother Colon Cancer Mother Lung Cancer Mother Lung Cancer Paternal Grandfather Relation Name Status Comments Father Maternal Aunt Maternal Grandfather Maternal Grandmother Mother Paternal Grandfather Social History Tobacco Use Types Packs/Day Years Used Date Smoking Tobacco: Never Cigarettes Smokeless Tobacco: Never Alcohol Use Standard Drinks/Week Comments No 0 (1 standard drink = 0.6 oz pur e alcohol) Comments No Sex and Gender Information Value Date Recorded Sex Assigned at Not on file Legal Sex Female 11:20 PM CDT Gender Identity Not on file Sexual Orientation Not on file 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 on file Not on file Not on fi le Last Filed Vital Signs Vital Sign Reading Time Taken Comments Blood Pressure 126/85 05/30/2018 1:00 PM [employer]OD [employer]ANK LABORATORY TECHNOLOGIST Pulse 57 05/30/2018 1:00 PM BLOOD BANK LABORATORY TECHNOLOGIST Temperature 35.9 C (96.6 F) 05/30/2018 1:00 PM BLOOD BANK LABORATORY TECHNOLOGIST Respiratory Rate 16 05/30/2018 1:00 PM BLOOD BANK LABORATORY TECHNOLOGIST Oxygen Saturation 99% 05/30/2018 1:00 PM BLOOD BANK LABORATORY TECHNOLOGIST Inhaled Oxygen Concentration - - Weight 58.5 kg (129 lb) 05/30/2018 1:00 PM BLOOD BANK LABORATORY TECHNOLOGIST Height 167.6 cm (5' 6) 05/30/2018 1:00 PM BLOOD BANK LABORATORY TECHNOLOGIST Body Mass Index 20.82 05/30/2018 1:00 PM BLOOD BANK LABORATORY TECHNOLOGIST Plan of Treatment Health Maintenance Due Date Last Done Comments Hepatitis C Virus (HCV) Screening 1972 TdaP Immunization 1972 Hepatitis B Immunization (1 of 3 - 19+ 3-dose series) 1991 Pap Smear 1993 Cervical Cancer Screening (CCS) 2002 HPV/Cotest 2002 Cologuard 2022 Immunochemical Fecal Occult Blood 2022 Mammogram 2022 Pneumococcal Immunization (5 0+ years) (1 of 1 - PCV) 2022 Zoster Immunization (1 of 2) 2022 Influenza Immunization (#1) 2024 04/30/2019 SARS-COV-2 Immunization ( - season) 2024 05/07/2021, 07/21/2020, 06/30/2020 Colonoscopy 09/27/2025 09/28/2015 Colorectal Cancer Screening 09/27/2025 Respiratory Syncytial Virus (RSV) Immunization (Adult) (1 - 1-dose 75+ series) 2047 Meningococcal Immunization (ACWY) Aged Out No longer eligible b ased on patient's age to complete this topic Pneumococcal Immunization Combined Aged Out No longer eligible b ased on patient's age to complete this topic Rotavirus Immunization Aged Out No lo nger eligible based on patient's age to complete this topic Procedures Procedure Name Priority Date/Time Associated Diagnosis Comments COLONOSCOPY Routine 09/28/2015 from Last 3 Months or Most Recently Relevant to Health Maintenance Results * COLONOSCOPY (09/28/2015) Kristy Florence MD PROCEDURE/MINOR SURGICAL O RDERABLES Final Result from Last 3 Months or Most Recently Relevant to Health Maintenance Care Teams Demonstrator Sales Relationship Specialty Start Date End Date Kristy Florence MD [address] [facility] [address] [place] [address] PCP - General Family Medicine 10/03/15
--- OUTSIDE RECORDS SUMMARY | 2024-12-31 15:31 | XMS_ITS | Clinical Summary ---
Author Organization [facility] [address] Address [address] [place] [address] Care Team Providers Care Watch Dial Maker Name Role Phone Silvana León MD Primary [...] 12/05/2021 Assessment & Plan (08/11/2024 1:25 PM BOOK AUTHOR): Order CBC, cmp, lipid, hgb A1c tsh Colonoscopy up to date, due 2027 Pap smear: goes to [facility] Mammo: follows with ob F/u in 1 year for annual Assessment & Plan (12/18/2022 11:28 AM CDT): Ordered CBC, cmp, lipid, hgb a1c Colonoscopy scheduled Pap smear: goes to [facility] and up to date on screening Mammo: follows with ob Pcv20:declines Zoster given today F/u in 1 year for annual Assessment & Plan (12/05/2021 11:37 AM CDT): Ordered CBC, cmp, lipid, hgb a1c, HIV, hep c, TSH, and free t4 Colonoscopy referral for may Pap smear: goes to [facility] and up to date on screening Mammo: follows with ob F/u in 1 year for annual Mild intermittent asthma without complication Assessment & Plan (08/10/2024 12:15 PM BOOK AUTHOR): Stable Continue with albuterol prn, singulair daily, [...] TEST 11/11/2019 Tdap 05/17/2021 ZOSTER Recombinant 04/04/2023,12/18/2022 Surgical History Surgery Date Site/Laterality Comments KNEE ARTHROSCOPY Left CERVICAL BIOPSY W/ LOOP ELECTRODE EXCISION CYST REMOVAL Medical History Medical History Date Comments Hx Other Medical cervical coniza tion Asthma Asthma Hx Other Medical cervial cancer 2006 Hx Other Medical knee Arthroscop y 2011 Family History Medical History Relation Name Comments Bladder Cancer Father Cancer -bladd er; Other Father hodgkins lympho ma; Cause of : hodgkins lymphoma Lung cancer Mother Cancer -lung; Other Mother Alive and well; Rectal cancer Mother Arthritis Other 1 Family history of Arthritis; Cancer Other 2 Family history of Cancer, unknown; Hypertension Other 3 Family history of Hypertension; Heart disease Other 4 Family history of Heart problems; Relation Name Status Comments Brother Alive Father Mother Alive Other 1 Other 2 Other 3 Other 4 Sister Alive Social History Tobacco Use Types Packs/Day Years [...] on file Legal Sex Female 11:48 PM BOOK AUTHOR Gender Identity Not on file Sexual Orientation Not on file Obstetrics History Last Filed Vital Signs Vital Sign Reading Time Taken Comments Blood Pressure 116/62 08/11/2024 12:52 PM BOOK AUTHOR Pulse 53 08/11/2024 12:52 PM BOOK AUTHOR Temperature 36.9 C (98.5 F) 08/11/2024 12:52 PM BOOK AUTHOR Respiratory Rate 16 08/11/2024 12:52 PM BOOK AUTHOR Oxygen Saturation 99% 08/11/2024 12:52 PM BOOK AUTHOR Inhaled Oxygen Concentration - - Weight 59.9 kg (132 lb) 08/11/2024 12:52 PM BOOK AUTHOR Height 165.7 cm (5' 5.25) 08/11/2024 12:[address] Body Mass Index 21.8 08/11/2024 12:52 PM BOOK AUTHOR Plan of Treatment Health Maintenance Due Date Last Done Comments Breast Cancer Screening-Mammogram 1970 Influenza Vaccine (Season Ended) 2025 04/14/2022, 05/07/2021, 07/21/2020, Additional history exists Pneumococcal vaccine <65 (1 of 2 - PCV) 07/27/2025 Postponed from 1991 (Patient declined, but will receive in the future) Covid-19 Vaccine ( season) 2025 06/01/2022, 05/07/2021, 07/21/2020, Additional history exists Postponed from 03/15/2024 (Patient declined, but will receive in the future) Depression Screening 08/11/2025 08/11/2024, 12/18/2022, 12/05/2021 Regular Well Visit/Exam 18-64 08/11/2025 08/11/2024, 12/18/2022, 12/05/2021 Colon Cancer Screening-Colonoscopy 02/06/2028 02/05/2023, 09/28/2015 Cervical Cancer Screening 10/28/2028 10/29/2023 DTaP/Tdap/Td Vaccine (8 - Td or Tdap) 05/17/2031 05/17/2021, 04/08/1990, 05/06/1980, Additional history exists Hepatitis B Screening Completed 02/08/1994 , 07/26/1993, 06/20/1993 Hepatitis C Screening Completed 12/12/2021 Zoster Vaccine Completed 04/04/2023, 12/18/2022 Procedures Procedure Name Priority Date/Time Associated Diagnosis [...] Pichardo MD - 02/05/2023 8:[address] [facility] Patient Name: Neha Salinas Procedure Date: 02/05/2023 8:50 AM Date of : 1970 Admit Type: Outpatient Age: 52 Gender: Female Attending MD: Destiny Pichardo M.D. Room: [facility] ENDOSCOPY ROOM 1 Note Status: Finalized Patient [...] passed under direct vision.The Pediatric Colonoscope [id number]-H190L [id number] was introduced through the anus and advanced [...] 8:50 AM Procedure Code(s): --- Professional --- 09532, Colonoscopy, flexible; diagnostic, including collection of specimen(s) by brushing or washing, when performed (separateprocedure) Diagnosis Code(s): --- Professional --- Z80.0, Family history of malignant neoplasm of digestive organs K64.9, Unspecified hemorrhoids CPT copyright 2020 [employer]. All rights reserved. The codes documented in this report are preliminary and upon pre coder reviewmay be revised to meet current compliance requirements. Recognized by the [employer] for promoting quality in endoscopy us Destiny Pichardo MD ENDOSCOPY PROCEDURES Final Result * Hepatitis C antibody (12/12/2021 9:49 AM CDT) Hep C Ab Nonreactive Nonreactive [facility] ([facility]) Comment: Interpretive Data Nonreactive: Antibodies to [...] last revised on 2019. Testing performed by: [facility], [address] [place] [address]., [id number] Blood 12/12/2021 9:49 AM CDT 12/12/2021 3:58 PM CDT Narrative [facility] ([facility]) - 12/12/2021 5:26 PM CDT Patient will be getting labs done on or around 12/05 at [facility] Silvana León MD LAB MICROBIOL OGY - GENERAL ORDERABLES Edited Result - Final [facility] ([place]) 1 [facility] Department [place] [address] from Last 3 Months or Most Recently Relevant to Health Maintenance Insurance [employer] OPEN ACCESS [facility] Advance Directives For more information, please contact: [phone] * Full Code (Latest Code Status on File) Date Activated Date Inactivated Comments 02/05/2023 8:04 AM 02/05/2023 2:01 PM * Full Code Date Activated Date Inactivated Comments 02/05/2023 8:04 AM 02/05/2023 8:04 AM Care Teams Watch Dial Maker Relationship Specialty Start Date End Date Silvana León MD [address] [place] [address] PCP - General Family Medicine 12/05/21
--- OUTSIDE RECORDS SUMMARY | 2024-12-31 15:31 | XMS_ITS | CONTINUITY OF CARE DOCUMENT ---
Author Name yolande lanier Address Unknown Organization [facility] Address [address] [place] [address] Phone [phone] Care Team Providers Care Vp & General Counsel Name Role Phone Nathan BABB, Fausto Unavailable DARREL BABB, UMM Unavailable DARREL BABB, UMM Unavailable [phone] PROBLEMS Condition Status Date Provider Notes PATENT FORAMEN OVALE active Fausto Evans MD CHEST PAIN, ATYPICAL active Fausto Evans MD ENCOUNTERS Date Type Provider Location Encounter Diag nosis - In-person encounter Office Visit Fausto [facility] MD [facility] - In-person encounter Office Visit Fausto Evans MD [facility] - In-person encounter Office Visit Fausto Evans MD [facility] PATENT FORAMEN OVALECHEST PAIN, ATYPICAL VITAL SIGNS Date Observation Value Provider Body Mass Index (Ratio) 20.57 kg/m2 Anea herbie Theodore blood pressure, diastolic 76 mm[Hg] An eatris Theodore blood pressure, systolic 115 mm[Hg] Ane atris Theodore pulse rate 61 /min Melaatrholger Jaimes oxygen saturation, oximetry 99 % Aneatrholger Jaimes respiratory rate E&M 16 /min Aneatri s Theodore weight E&M 127 [lb_av] Melaatrholger Jaimes blood pressure, diastolic 84 mm[Hg] Loli Medina blood pressure, systolic 129 mm[Hg] Kiara Medina pulse rate 55 /min Marcelle Medina oxygen saturation, oximetry 99 % Marcelle Medina respiratory rate E&M 16 /min Marcelle Medina weight E&M 126 [lb_av] Marcelle Medina height E&M 66 [in_i] Marcelle Medina blood pressure, diastolic 77 mm[Hg] Baldemar aragon O'Alban blood pressure, systolic 123 mm[Hg] Elsa snowden O'[place]ban pulse rate 58 /min Brenda O'Alban oxygen saturation, oximetry 99 % Brenda O'Alban respiratory rate E&M 18 /min Brenda O'Alban weight E&M 125 [lb_av] Brenda O'Alban ALLERGIES No Known Drug Allergies RESULTS Date Observation Value Provider Reference Range Interpretation Location platelet [facility], [facility] 37.1 % [facility] lipoprotein, beta, serum, point, quantitative, calculated 78 mg/dL [facility] cholesterol, serum 168 mg/dL [facility] alanine aminotransferase (SGPT), serum 21 1/L [facility] aspartate aminotransferase (SGOT), serum 25 1/L Mata Sweeney creatinine, serum 0.80 mg/dL [facility] potassium, serum 4.0 mmol/L [facility] sodium, serum 139 mmol/L [facility] HISTORY OF MEDICATION USE Medication Status Instructions Dates Provider Indications Com ments MULTIVITAMINS ORAL CAPSULE active ONE TAB. DAILY Aneatris Brown ZYRTEC ALLERGY TABLET completed as needed 6 - 9 Aneatris Brown ZYTAZE CAPSULE completed as needed - 6 Marcelle Medina SYMBICORT AEROSOL active as needed [facility] VITAMIN D TABLET completed once daily - 6 Marcelle Medina FLONASE 50 MCG/ACT NASAL SUSPENSION completed as needed - 6 Marcelle Medina ASPIRIN 81 MG ORAL TABLET active once daily Brenda Atkins SINGULAIR 10 MG ORAL TABLET active once daily Brenda Atkins SOCIAL HISTORY Date Observation Value Provider social history reviewed E&M reviewed Fausto Evans MD drug use none Fausto Evans MD social history reviewed E&M reviewed Fausto Evans MD smoking status never smoker Marcelle moore social history E&M L jaky with family/friends E thnicity: M arital Status: Fausto Evans MD social history reviewed E&M reviewed Fausto Evans MD physical exercise, f requency, days per week yes [employer] caffeine use, averag e drinks per day yes [employer] alcohol use, average drinks per day social basis only [employer] smoking status Non-smoker [employer] MENTAL STATUS Date Observation Value Provider assessment of judgme nt and insight E&M Alert and oriented to time, place and person. Mood and affect are normal. Fausto Evans MD assessment of judgme nt and insight E&M Alert and oriented to time, place and person. Mood and affect are normal. Fausto Evans MD assessment of judgme nt and insight E&M Alert and oriented to time, place and person. Mood and affect are normal. Fausto Evans MD INSURANCE PROVIDERS Payer name Policy type / Coverage type [employer]ie [employer] [id number] [employer] surya [id number] TREATMENT PLAN Date Name Performer follow up: H er updated medication list for this problem includes: Aspirin 81 Mg Tabs (Aspirin) ..... Once daily Orders: E KG (CPT-29121) BP today: 115/76 Prior BP: 129/84 (11/07/2012) C HOL: 168 (09/13/2011) LDL: 78 (09/13/2011) HCT: 37.1 (09/13/2011) Platelets: 343 (09/13/2011) C reat: 0.80 (09/13/2011) Na+: 139 (09/13/2011) K+: 4.0 (09/13/2011) Fausto Evans MD follow up Fausto Evans MD follow up: H er updated medication list for this problem includes: Aspirin 81 Mg Tabs (Aspirin) ..... Once daily Orders: E KG (CPT-06316) BP today: 129/84 Prior BP: 123/77 (10/19/2011) C HOL: 168 (09/13/2011) LDL: 78 (09/13/2011) HCT: 37.1 (09/13/2011) Platelets: 343 (09/13/2011) C reat: 0.80 (09/13/2011) Na+: 139 (09/13/2011) K+: 4.0 (09/13/2011) Fausto Evans MD follow u p: H er updated medication list for this problem includes: Aspirin 81 Mg Tabs (Aspirin) ..... Once daily BP today: 123/77 Prior BP: / () Fausto Evans MD HISTORY OF PROCEDURES Procedure Date Procedure Name Provider Procedure Notes S tatus EKG Fausto Evans MD completed EKG Fausto Evans MD completed EKG Fausto Evans MD completed
== END 2024-12-31 15:28 | disposition home or self-care (01) ==
LOC: ANHIMG 15:29
PROVIDERS: PCP Obstetrics & Gynecology; Visit Provider Obstetrics & Gynecology
DX: Z12.31 Encounter for screening mammogram for malignant neoplasm of breast (principal)
CPT/HCPCS: 77063; 77067